=== PATIENT | male | born 1995 | race Caucasian/White ===

== ENCOUNTER 2023-05-18 01:00 | Emergency (ER) | payer MEDICARE, MEDICAID ==
[~2023-05-18] VITALS: Ht 182.9 cm; Wt 81.8 kg
[2023-05-18 01:44] VITALS: BP 95/65; PULSE 80; TEMP 99.4; O2SAT 98
[2023-05-18] MEDS ORDERED: normal saline 1000ML IV soln IVB ONE (02:45)
[2023-05-18 03:10] VITALS: RESP 18
[2023-05-18 03:51] LABS: ALANINE AMINOTRANSFERASE 28 U/L (12-78); ALBUMIN 3.5 G/DL (3.4-5.0); ALBUMIN/GLOBULIN RATIO 0.9 (1.1-1.5); ALKALINE PHOSPHATASE 51 IU/L (46-116); ANION GAP 6 (8-16); ASPARTATE AMINO TRANSFERASE 20 U/L (10-37); BILIRUBIN,TOTAL 0.2 MG/DL (0.1-1.0); BLOOD UREA NITROGEN 29 MG/DL (7-18); BUN/CREATININE RATIO 28.4 (10.0-20.0); CALCIUM 8.3 MG/DL (8.5-10.1); CHLORIDE 100 MMOL/L (99-107); CREATININE 1.02 MG/DL (0.60-1.10); GLUCOSE 323 MG/DL (70-104); SODIUM 132 MMOL/L (135-145); TOTAL CARBON DIOXIDE 26.4 MMOL/L (24-32); TOTAL PROTEIN 7.2 G/DL (6.4-8.2); eCRCL 120 ML/MIN; eGFR 88 ML/MIN
--- NOTE | 2023-05-18 04:14 | NUR ---
pt self administered 5 units of home insulin pen that was verified by radio news writer as [id number] by er md recio.
== END 2023-05-18 04:17 | disposition home or self-care (01) ==
LOC: ER 01:01
DX: E11.65 Type 2 diabetes mellitus with hyperglycemia (principal); E03.9 Hypothyroidism, unspecified
CPT/HCPCS: 36415; 80053; 82948; 96360; 99283; J7030